=== PATIENT | female | born 1995 | race Caucasian/White ===

== ENCOUNTER 2024-02-21 05:56 | Inpatient (IN) | payer OTHER ==
[2024-02-21] MEDS ORDERED: miSOPROStoL 200 MCG TAB PO PRN (06:10)
[2024-02-21] MEDS ORDERED: TRANEXAMIC 1,000 MG/100ML-NACL 1,000 MG in EMPTY BAG 1 BAG IV PRN (06:10)
[2024-02-21] MEDS ORDERED: TERBUTALINE 1 MG/ML VIAL SQ PRN (06:10)
[2024-02-21] MEDS ORDERED: CARBOPROST TROMETHAMINE 250 MCG/ML 1 ML AMP IM PRN (06:10)
[2024-02-21] MEDS ORDERED: OXYTOCIN 10 UNIT/ML 1 ML VIAL IM PRN (06:10)
[2024-02-21] MEDS ORDERED: METHYLERGONOVINE 0.2 MG/ML 1 ML AMP IM PRN (06:10)
[2024-02-21] MEDS: OXYTOCIN 30 UNITS/500 ML NS 30 UNIT in SALINE 1 500ML.BAG IV SCH (06:18)
[2024-02-21] MEDS: LACTATED RINGERS 1,000 ML IV SCH (06:22)
[2024-02-21 06:24] LABS: Basophils % (A) 0 %; Eosinophils # (A) 0.2 k/uL (0-0.7); Eosinophils % (A) 3 %; HCT 33.6 % (34.0-46.0); HGB 11.1 gm/dL (11.4-16.0); Lymphocytes # (A) 2.3 k/uL (1.0-4.8); Lymphocytes % (A) 27 %; MCH 29.5 pg (25.0-35.0); MCV 89.4 fL (80.0-100.0); Monocytes # (A) 0.4 k/uL (0-1.0); Monocytes % (A) 5 %; Neutrophils # (A) 5.3 k/uL (1.3-7.7); Neutrophils % (A) 63 %; Platelet Count 218 k/uL (150-450); RBC 3.76 m/uL (3.80-5.40); RDW 12.6 % (11.5-15.5); WBC 8.5 k/uL (3.8-10.6)
[2024-02-21] MEDS ORDERED: SODIUM CHLORIDE 0.9% 250 ML BAG ONE (09:05)
[2024-02-21] MEDS ORDERED: ROPIVACAINE 5 MG/ML 30 ML VIAL ONE (09:05)
[2024-02-21] MEDS ORDERED: fentaNYL (PF) 50 MCG/ML 5 ML AMP ONE (09:05)
--- NOTE | 2024-02-21 12:47 | P.HPOB ---
History of Present Illness H&P Date: 02/21/24 Chief Complaint: elective induction of labor, TOLAC Ms. Logan is a 28 year old at 39 weeks and 2 days with EDC of 02/26/2024 by week who presents for elective induction of labor and TOLAC. Her has been complicated by maternal anxiety and depression for which she has been stable on citalopram 20mg daily. The patient also has hypothyroidism for which she is taking Levothyroxine 25 mcg daily. The patient had normal thyroid function studies at 26 weeks. Finally, the fetus was noted to have mild left renal pelvis dilation on ultrasound. The fetus is estimated in the 25%ile for growth at 32 weeks. Obstetric history: FTVD 2016 > FTCS 12/23 breech presentation > 2021 work-up: blood type A positive, antibody negative, rubella immune, VDRL non-reactive, HIV negative, HBsAg negative, HCV ab negative, gonorrhea negative, chlamydia negative, 1 hour GTT within normal limits, GBS negative. Past Medical History Past Medical History: No Reported History History of Any Multi-Drug Resistant Organisms: None Reported Past Surgical History: Section Past Anesthesia/Blood Transfusion Reactions: No Reported Reaction Past Psychological History: Depression Smoking Status: Never smoker Past Drug Use History: None Reported Medications and Allergies Home Medications Medication Instructions Recorded Confirmed Type Escitalopram [Lexapro] 5 mg PO DAILY 02/21/24 02/21/24 History Levothyroxine Sodium 25 mcg PO DAILY 02/21/24 02/21/24 History Allergies Allergy/AdvReac Type Severity Reaction Status Date / Time No Known Allergies Allergy Verified 02/21/24 06:09 Exam Vital Signs Temp Pulse Resp BP Pulse Ox 02/21/24 06:08 97.5 F L 79 16 123/72 98 Intake and Output 02/20/24 02/21/24 02/21/24 22:59 06:59 14:59 Other: Weight 73.482 kg Focused physical exam is performed. This is a healthy-appearing in no apparent distress. Breathing is non-labored. Abdomen is gravid and non-tender. Cervical exam is 4 cm, 70% effacement, -2 station. AROM is undertaken with clear fluid noted. Extremities non-tender and non-edematous. heart tones are Category I and tocometer is graphing contractions every 2-4 minutes. Results Result Diagrams: 02/21/24 06:10 Abnormal Lab Results - Last 24 Hours (Table) 02/21/24 Range/Units 06:10 RBC 3.76 L (3.80-5.40) m/uL Hgb 11.1 L (11.4-16.0) gm/dL Hct 33.6 L (34.0-46.0) % Assessment and Plan Assessment: 28 year old at 39 weeks and 2 days presenting for elective induction of labor and TOLAC Plan: Admit, NPO, pitocin per protocol, epidural in place, continuous EFM and tocometer, close monitoring of patient. Patient understands risks of TOLAC including <2% risk of uterine rupture with pitocin induction. All questions are answered. Anticipate a vaginal delivery. Time with Patient: Less than 30
[2024-02-21] MEDS: LIDOCAINE 0.5% (PF) 5 MG/ML (50 ML SDV) SQ PRN (21:35)
[2024-02-21] MEDS ORDERED: SIMETHICONE 80 MG CHEWABLE PO PRN (21:47)
[2024-02-21] MEDS ORDERED: LANOLIN CREAM 1 GM TUBE TOPICAL PRN (21:47)
[2024-02-21] MEDS ORDERED: diphenhydrAMINE 50 MG CAP PO PRN (21:47)
[2024-02-21] MEDS ORDERED: HYDROCORTISONE 2.5% RECTAL CREAM 30 GM TUBE RECTAL PRN (21:47)
[2024-02-21] MEDS ORDERED: diphenhydrAMINE 25 MG CAP PO PRN (21:47)
[2024-02-21] MEDS ORDERED: diphenhydrAMINE 50 MG/ML 1 ML VIAL IVP PRN ×2 (21:47)
[2024-02-21] MEDS ORDERED: ZOLPIDEM 5 MG TAB PO PRN (21:47)
--- NOTE | 2024-02-21 21:56 | P.PROBDLV ---
Vaginal Delivery Note - . Vaginal Delivery Note: DATE OF SERVICE: 02/21/2024 PROCEDURE: Normal Vaginal Delivery ATTENDING: Dr. Winifred Smith MD ESTIMATED BLOOD LOSS: 300 mL FINDINGS: VMI, Apgars <</>>. Weight 7 pounds and 13 ounces (3545 grams) PROCEDURE: Ms. Logan is a 28 year old at 39 weeks and 2 days presenting to labor and delivery for elective induction of labor. The patient has a history of one prior delivery with a subsequent successful . The has been complicated by maternal anxiety, depression, and hypothyroidism. For further details, please review the admitting H&P. Pitocin was started per protocol. AROM was underatken at 1215 revealing clear amniotic fluid. The patient received epidural anesthesia per her request. The patient was completely dilated at 2110. She has excelled expulsive efforts. After 4 pushes, the head came to a crown. With another pushed, the head was delivered. No nuchal cords were appreciated. The left anterior shoulder delivered followed by the right posterior shoulder and the remainder of the viable male at 2130 . The was placed on the maternal abdomen and bulb suctioned. The infant was noted to be spontaneously crying. Cord was clamped and cut after a 30-second delay. The was handed off to the pediatric team. Placenta was delivered whole with gentle cord traction at 2132. Oxytocin was started to facilitate uterine tone. The oxytocin was opened wide and bimanual massage was performed for brisk bleeding. Uterine fundus was found to be firm and below the umbilicus upon fundal massage. Thorough examination of the cervix, vagina, periurethral area, and perineum revealed a superficial left labia majora laceration. This was infiltrated with lidocaine and repaired in an interrupted fashion with 3-0 Vicryl. The patient is stable and allowed to begin the bonding process.
[2024-02-21] MEDS: BENZOCAINE/MENTHOL SPRAY 1 GM/SPRAY AEROSOL TOPICAL PRN (21:57)
[2024-02-22 07:49] LABS: Basophils % (A) 0 %; Eosinophils # (A) 0.1 k/uL (0-0.7); Eosinophils % (A) 1 %; HCT 30.3 % (34.0-46.0); HGB 9.9 gm/dL (11.4-16.0); Lymphocytes # (A) 1.3 k/uL (1.0-4.8); Lymphocytes % (A) 15 %; MCH 28.9 pg (25.0-35.0); MCHC 32.6 g/dL (31.0-37.0); MCV 88.6 fL (80.0-100.0); Mean Platelet Volume 9.1; Monocytes # (A) 0.4 k/uL (0-1.0); Monocytes % (A) 5 %; Neutrophils # (A) 7.1 k/uL (1.3-7.7); Neutrophils % (A) 78 %; Platelet Count 194 k/uL (150-450); RBC 3.42 m/uL (3.80-5.40); RDW 12.5 % (11.5-15.5); WBC 9.1 k/uL (3.8-10.6)
[2024-02-22] MEDS: SENNOSIDES-DOCUSATE SODIUM 1 EACH TAB PO SCH (08:05)
[2024-02-22] MEDS: IBUPROFEN 600 MG TAB PO PRN (08:05)
--- NOTE | 2024-02-22 08:29 | P.PNOBGVD ---
Subjective - Subjective Principal diagnosis: s/p normal vaginal delivery Interval history: The patient is doing well this morning and had no acute events overnight. She has no complaints this morning. She reports minimal lochia, passing flatus, voiding without difficulty, ambulating, and eating/drinking without nausea or vomiting. She is her without difficulty. She denies chest pain, shortness of breathing, fevers, or chills overnight. She denies pain or swelling in the legs. Patient reports: Reports appetite normal, Reports voiding normally, Reports pain well controlled, Reports ambulating normally [place]: doing well, nursing well Objective - Latest Vital Signs Latest vital signs: Vital Signs Temp Pulse Pulse Resp BP Pulse Ox 02/22/24 08:00 98.7 F 68 17 112/72 02/22/24 04:25 98.3 F 57 L 14 109/68 97 02/21/24 23:47 98.2 F 92 16 117/70 96 02/21/24 23:32 75 16 115/68 02/21/24 23:17 76 16 117/70 02/21/24 23:02 77 16 117/60 99 02/21/24 22:47 79 16 116/64 99 02/21/24 22:32 98.1 F 71 16 120/70 100 02/21/24 22:17 97.9 F 78 16 126/72 98 02/21/24 22:02 83 16 120/72 02/21/24 21:47 97.8 F 84 16 119/64 Intake and Output 02/21/24 02/22/24 02/22/24 22:59 06:59 14:59 Intake Total 30.5 Output Total 224 Balance 30.5 -224 Intake: Intake, IV Titration 30.5 Amount Oxytocin 30 Units/500 ml 30.5 Ns 30 unit In Saline 1 500ml.bag @ Per Protocol IV .Q0M [facility] Rx#:[id number] Output: Output, Quantitative 224 Blood Loss Other: # Voids 1 2 # Bowel Movements 0 - Exam Extremities: Present: normal Abdomen: Present: normal appearance, soft Uterus: Present: normal, firm - Labs Labs: Abnormal Lab Results - Last 24 Hours (Table) 02/22/24 Range/Units 07:24 RBC 3.42 L (3.80-5.40) m/uL Hgb 9.9 L (11.4-16.0) gm/dL Hct 30.3 L (34.0-46.0) % Assessment and Plan Assessment: 28 year old PPD#1 s/p after elective induction Plan: 1. . patient meeting all milestones appropriately, doing well. 2. acute blood loss anemia. ferrous sulfate qDay. 3. viable male infant. doing well at bedside, nursing well. Plan for circumcision tomorrow. Dispo: Anticipate discharge home tomorrow.
[2024-02-22] MEDS: FERROUS SULFATE 325 MG TAB PO SCH (14:03)
[2024-02-22] MEDS: ACETAMINOPHEN TAB 325 MG TAB PO PRN (15:53)
--- NOTE | 2024-02-23 07:59 | P.DS ---
Providers Date of admission: 02/21/24 05:56 Expected date of discharge: 02/23/24 Attending physician: Winifred Smith MD Primary care physician: Ej Crocker MD Hospital Course: Ms. Logan is a 28 year old now who is PPD#2 s/p after elective induction of labor. The patient is doing well this morning and had no acute events overnight. She has no complaints this morning. She reports minimal lochia, passing flatus, voiding without difficulty, ambulating, and eating/drinking without nausea or vomiting. doing well at bedside, s/p circumcision. She denies chest pain, shortness of breathing, fevers, or chills overnight. She denies pain or swelling in the legs. Postoperative restrictions are reviewed with the patient including pelvic rest for 6 weeks. The patient is encouraged to call the office if she experiences any heavy bleeding, foul- smelling discharge, breast complaints, or any if she has any other concerns. She will follow up in the office in 6 weeks for exam. She plans to take Motrin and Tylenol prn OTC. All questions are answered. Assessment: Ms. Logan is a 28 year old PPD#2 s/p Plan - Discharge Summary New Discharge Prescriptions: No Action Levothyroxine Sodium 25 mcg PO DAILY Escitalopram [Lexapro] 5 mg PO DAILY Discharge Medication List Escitalopram [Lexapro] 5 mg PO DAILY 02/21/24 [History] Levothyroxine Sodium 25 mcg PO DAILY 02/21/24 [History] Follow up Appointment(s)/Referral(s): Winifred Smith MD [STAFF PHYSICIAN] - 6 Weeks Activity/Diet/Wound Care/Special Instructions: Instructions 1. Do not begin any exercise program for 3 weeks. 2. Do not resume sexual relations for 6 weeks or longer if uncomfortable. 3. You may take tub baths or showers at any time. 4. You may use tampons if desired after 6 weeks. 5. Keep any areas repaired with stitches clean and dry. 6. If you are not nursing, wear a good fitting, supportive bra during the day and limit fluid intake for at least 1 week to prevent breast engorgement. 7. Call the office, , within the next week to make appointment for your 6 week checkup if it has not already been made. 8. Report any of the following occurrences to the doctor promptly: a. Heavy, excessive bleeding b. Chills, fever c. Burning or frequency of urination d. Pain or redness and breasts if nursing e. Increasing pain or swelling of vulva (stitches). In addition to the above instructions, the following additional should be followed: 1. No heavy lifting or straining (exercising) until after 6 week checkup. 2. Keep abdominal incision clean and dry: You may wear a dressing if more comfortable. 3. Make office appointment for 2 weeks after delivery date. Discharge Disposition: HOME SELF-CARE
[2024-02-23 08:57] VITALS: BP 122/63; PULSE 81; RESP 14; TEMP 97.8
== END 2024-02-23 09:50 | disposition home or self-care (01) | DRG 560 ==
LOC: 4FBP 05:56
PROVIDERS: ADMIT Obstetrics & Gynecology; ATTEND Obstetrics & Gynecology
PROC: 10907ZC Drainage of Amniotic Fluid, Therapeutic from Products of Conception, Via Natural or Artificial Opening (ICD-10-PCS; principal; 2024-02-21)
PROC: 0UQMXZZ Repair Vulva, External Approach (ICD-10-PCS; principal; 2024-02-21)
PROC: 10E0XZZ Delivery of Products of Conception, External Approach (ICD-10-PCS; principal; 2024-02-21)
PROC: 3E033VJ Introduction of Other Hormone into Peripheral Vein, Percutaneous Approach (ICD-10-PCS; principal; 2024-02-21)
DX: O34.219 Maternal care for unspecified type scar from previous cesarean delivery (principal); O99.344 Other mental disorders complicating childbirth; F41.9 Anxiety disorder, unspecified; D62 Acute posthemorrhagic anemia; O99.02 Anemia complicating childbirth; F32.A Depression, unspecified; O99.284 Endocrine, nutritional and metabolic diseases complicating childbirth; E03.9 Hypothyroidism, unspecified; O70.0 First degree perineal laceration during delivery; Z79.899 Other long term (current) drug therapy; Z28.310 Unvaccinated for COVID-19; Z79.890 Hormone replacement therapy; Z3A.39 39 weeks gestation of pregnancy; Z37.0 Single live birth
CPT/HCPCS: 85025; 86850; 86900; 86901